=== PATIENT | female | born 1950 | race Caucasian/White ===

== ENCOUNTER 2016-06-01 13:40 | Emergency (ER) | payer OTHER | END 2016-06-01 17:04 | disposition home or self-care (01) | LOC: FER 13:40 | DX: S82.002A Unspecified fracture of left patella, initial encounter for closed fracture (principal); M25.511 Pain in right shoulder; W01.0XXA Fall on same level from slipping, tripping and stumbling without subsequent striking against object, initial encounter | CPT/HCPCS: 73000; 73564; 99283 ==